=== PATIENT | female | born 1980 | race African-American/Black ===

== ENCOUNTER 2024-06-11 09:24 | Emergency (ER) | payer MEDICAID, OTHER ==
[~2024-06-11] VITALS: Ht 160 cm; Wt 63.6 kg
[~2024-06-11 09:24] MED LIST: INSNPH SQ; INSREG SQ
[2024-06-11 09:26] VITALS: TEMP 98.4
[2024-06-11] MEDS: LIDOCAINE 5% TRANSDERMAL PATCH TD ONE (10:29)
[2024-06-11] MEDS: GABAPENTIN 300 MG CAPSULE PO ONE (10:29)
[2024-06-11] MEDS: ACETAMINOPHEN 500 MG TABLET PO ONE (10:29)
[2024-06-11] MEDS ORDERED: GABA-1181 PO (11:21)
[2024-06-11 11:27] VITALS: BP 183/1; PULSE 82; RESP 19; O2SAT 97
== END 2024-06-11 12:52 | disposition home or self-care (01) ==
LOC: EMS 09:26
DX: G54.0 Brachial plexus disorders (principal); E11.9 Type 2 diabetes mellitus without complications; I10 Essential (primary) hypertension; G89.29 Other chronic pain; Z98.51 Tubal ligation status; Z79.899 Other long term (current) drug therapy; Z71.6 Tobacco abuse counseling; Z79.4 Long term (current) use of insulin; Z88.5 Allergy status to narcotic agent
CPT/HCPCS: 71045; 99284

== ENCOUNTER 2024-08-11 08:12 | Inpatient (IN) | payer SELFPAY ==
[~2024-08-11] VITALS: Ht 165.1 cm; Wt 72.7 kg
[~2024-08-11 08:12] MED LIST changes: +GABA-1181 PO
[2024-08-11 09:02] LABS: BASOPHILS % (AUTO) 0.5 % (0.0-2.0); EOSINOPHILS % (AUTO) 0.7 % (1.0-6.0); HEMOGLOBIN 13.3 g/dL (12.0-16.0); LYMPHOCYTES % (AUTO) 11.7 % (22.0-44.0); MEAN CORPUSCULAR HEMOGLOBIN 30.8 pg (26.0-34.0); MEAN CORPUSCULAR HGB CONC 33.3 G/dL (31.0-37.0); MEAN CORPUSCULAR VOLUME 92 fL (80-100); MONOCYTES # (AUTO) 0.1 K/uL (0.1-1.0); MONOCYTES % (AUTO) 1.7 % (2.0-9.0); NEUTROPHILS # (AUTO) 7.1 K/uL (1.8-7.7); PLATELET COUNT (AUTO) 361 K/uL (150-450); RED BLOOD CELL COUNT(AUTO) 4.33 MIL/uL (4.00-5.20); RED CELL DISTRIBUTION WIDTH 15.3 % (11.5-14.5); WHITE BLOOD COUNT (AUTO) 8.3 K/uL (4.5-11.0)
[2024-08-11 09:05] LABS: NEUTROPHILS % (AUTO) 85.4 % (40.0-70.0)
[2024-08-11 09:08] LABS: APPEARANCE,URINE CLEAR (CLEAR); BILIRUBIN,URINE NEGATIVE (NEGATIVE); COLOR,URINE COLORLESS (YELLOW); GLUCOSE, URINE (UA) >=1000 mg/dL (NEGATIVE); LEUKOCYTE ESTERASE ,URINE NEGATIVE (NEGATIVE); NITRATE,URINE NEGATIVE (NEGATIVE); OCCULT BLOOD,URINE NEGATIVE (NEGATIVE); PROTEIN,URINE 100-200,SEE CONFIRM mg/dL (NEGATIVE); SPECIFIC GRAVITIY, URINE 1.014 (1.003-1.030); UROBILINOGEN,URINE <=1.0 mg/dL (<=1.0)
[2024-08-11 09:11] LABS: ALBUMIN 3.2 g/dL (3.4-5.0); BILIRUBIN,DIRECT 0.2 mg/dL (0.00-0.20); BILIRUBIN,TOTAL 0.5 mg/dL (0.1-1.0); TOTAL PROTEIN, SERUM 8.3 g/dL (6.4-8.2)
[2024-08-11 09:13] LABS: AMPHET/METH SCREEN,URINE NEGATIVE (NEGATIVE); BARBITURATE SCREEN, URINE NEGATIVE (NEGATIVE); BENZODIAZEPINES SCREEN,URINE NEGATIVE (NEGATIVE); CANNABINOID SCREEN,URINE POSITIVE (NEGATIVE); COCAINE SCREEN,URINE NEGATIVE (NEGATIVE); METHADONE SCREEN, URINE NEGATIVE (NEGATIVE); OPIATE SCREEN,URINE NEGATIVE (NEGATIVE); PHENCYCLIDINE SCREEN,URINE NEGATIVE (NEGATIVE)
[2024-08-11 09:15] LABS: ALCOHOL, URINE DRUG SCREEN NEGATIVE (NEGATIVE); SULFOSALICYLIC ACID,URINE 2+ (Negative)
[2024-08-11 09:16] LABS: LACTIC ACID 1.8 mmol/L (0.4-2.0)
[2024-08-11 09:16] LABS: BACTERIA,URINE None Seen /HPF (None Seen); RBC,URINE 0-2 /HPF (0-2); WBC,URINE None Seen /HPF (0-5)
[2024-08-11 09:20] LABS: ANION GAP 11 mmol/L (8-16); CARBON DIOXIDE 27 mmol/L (22-29); CHLORIDE 100 mmol/L (98-107); CREATININE 0.94 mg/dL (0.60-1.30); GLOMERULAR FILTR. RATE CALC > 60 mL/min (>60); LIPASE 35 U/L (16-77); POTASSIUM 3.9 mmol/L (3.5-5.1); SODIUM SERUM 138 mmol/L (136-145); UREA NITROGEN, BLOOD 12 mg/dL (7-18)
[2024-08-11 09:22] LABS: GLUCOSE,RANDOM 416 mg/dL (70-110)
[2024-08-11] MEDS: HYDROmorphone HCL 2 MG/ML SYRINGE IVP ONE (09:29)
[2024-08-11] MEDS: SODIUM CHLORIDE 0.9% 2,000 ML IV ONE (09:29)
[2024-08-11] MEDS: INSULIN REGULAR, HUMAN 100 UNITS/ML IVP ONE (09:30)
[2024-08-11] MEDS: ONDANSETRON HCL 4 MG/2 ML VIAL IVP ONE (09:31)
[2024-08-11 09:40] LABS: ALCOHOL, BLOOD (SERUM) < 3 mg/dL (0-10)
[2024-08-11 11:30] LABS: GLUCOMETER DEV NAME(LOC) ER.7; GLUCOSE,POINT OF CARE 176 MG/DL (70-110)
[2024-08-11] MEDS: MECLIZINE HCL 25 MG TABLET PO ONE (12:19)
[2024-08-11] MEDS: FentaNYL CITRATE PF 100 MCG/2 ML VIAL IVP ONE (13:37)
[2024-08-11 15:04] VITALS: BP 162/76; PULSE 91; RESP 19; TEMP 97.7; O2SAT 97
[2024-08-11] MEDS ORDERED: DEXTROSE 50%-WATER 25 GM/50 ML SYRINGE IVP PRN ×3 (15:15→18:15)
[2024-08-11] MEDS ORDERED: ALBUTEROL SULFATE 2.5 MG/0.5 ML NEB SOLUTION NEB PRN (15:15)
[2024-08-11] MEDS ORDERED: ZOLPIDEM TARTRATE 5 MG TABLET PO PRN (15:15)
[2024-08-11] MEDS ORDERED: ACETAMINOPHEN 325 MG TABLET PO PRN (15:15)
[2024-08-11] MEDS ORDERED: MAGNESIUM HYDROXIDE SUSPENSION 30 ML UDCUP PO PRN (15:15)
[2024-08-11] MEDS ORDERED: IPRATROPIUM BROMIDE 0.5 MG/2.5 ML NEB SOLUTION NEB PRN (15:15)
[2024-08-11] MEDS: MORPHINE SULFATE 2 MG/ML SYRINGE IVP PRN (15:34)
[2024-08-11] MEDS: GABAPENTIN 300 MG CAPSULE PO SCH (16:00)
[2024-08-11 16:45] VITALS: BP 165/86; PULSE 96; RESP 16; TEMP 97.6; O2SAT 98
[2024-08-11] MEDS: HEPARIN SODIUM,PORCINE 5,000 UNITS/ML VIAL SQ SCH (17:09)
[2024-08-11] MEDS: ONDANSETRON HCL 4 MG/2 ML VIAL IVP PRN (17:10)
[2024-08-11] MEDS: BISACODYL 10 MG RECTAL RECTAL SUPPOSITORY PR PRN (17:43)
[2024-08-11] MEDS ORDERED: INSULIN LISPRO 100 UNITS/ML SQ PRN (17:45)
[2024-08-11] MEDS: INSULIN LISPRO 100 UNITS/ML SQ PRN (18:23)
[2024-08-11] MEDS: INSULIN GLARGINE,HUM.REC.ANLOG 100 UNITS/ML SQ SCH (18:52)
[2024-08-11 19:51] LABS: GLUCOMETER DEV NAME(LOC) 5S.2D; GLUCOSE,POINT OF CARE 370 MG/DL (70-110)
[2024-08-11 19:51] LABS: GLUCOMETER DEV NAME(LOC) 5S.2D; GLUCOSE,POINT OF CARE 380 MG/DL (70-110)
[2024-08-11 20:49] VITALS: BP 165/89; PULSE 101; RESP 18; TEMP 97.9; O2SAT 99
[2024-08-11] MEDS ORDERED: INSULIN GLARGINE,HUM.REC.ANLOG 100 UNITS/ML SQ SCH ×2 (21:00)
[2024-08-11] MEDS ORDERED: INSULIN REGULAR, HUMAN 100 UNITS/ML SQ SCH (21:00)
[2024-08-11] MEDS ORDERED: INSULIN NPH, HUMAN ISOPHANE 100 UNITS/ML SQ SCH (21:00)
[2024-08-11] MEDS ORDERED: LISI-662 PO (21:11)
[2024-08-11] MEDS ORDERED: AMLO10TA55 PO (21:11)
[2024-08-11] MEDS: RINGERS SOLUTION,LACTATED 1,000 ML IV SCH (21:43)
[2024-08-11] MEDS: MethylPREDNISolone SOD SUCC 1,000 MG in SODIUM CHLORIDE 0.9% 50 ML IV SCH (21:43)
[2024-08-11 22:02] VITALS: BP 158/80; PULSE 97; RESP 17; TEMP 97.9; O2SAT 99
[2024-08-11] MEDS: HYDROmorphone HCL 2 MG/ML SYRINGE IVP PRN (22:13)
[2024-08-11] MEDS: FAMOTIDINE 20 MG/2 ML VIAL IVP SCH (22:13)
[2024-08-11 22:56] LABS: GLUCOMETER DEV NAME(LOC) 5S.2D; GLUCOSE,POINT OF CARE 180 MG/DL (70-110)
[2024-08-11 23:29] VITALS: BP 143/72; PULSE 88; RESP 18; TEMP 98.2; O2SAT 96
[2024-08-12] VITALS (7 sets, daily range): BP systolic 143–189; BP diastolic 70–88; PULSE 90–101; RESP 17–19; TEMP 98.2–98.5; O2SAT 97–100
[2024-08-12] MEDS ORDERED: DEXTROSE 50%-WATER 25 GM/50 ML SYRINGE IVP PRN ×2 (06:15→18:15)
[2024-08-12] MEDS: INSULIN LISPRO 100 UNITS/ML SQ PRN (06:26)
[2024-08-12] MEDS: SODIUM CHLORIDE 0.9% 1,000 ML IV SCH (06:26)
[2024-08-12 07:21] LABS: BASOPHILS % (AUTO) 0.1 % (0.0-2.0); EOSINOPHILS % (AUTO) 0 % (1.0-6.0); HEMATOCRIT 39.7 % (36-46); LYMPHOCYTES # (AUTO) 0.3 K/uL (1.0-4.8); LYMPHOCYTES % (AUTO) 2.2 % (22.0-44.0); MEAN CORPUSCULAR HEMOGLOBIN 30.8 pg (26.0-34.0); MEAN CORPUSCULAR HGB CONC 32.8 G/dL (31.0-37.0); MEAN CORPUSCULAR VOLUME 94 fL (80-100); MONOCYTES % (AUTO) 0.2 % (2.0-9.0); NEUTROPHILS # (AUTO) 13.8 K/uL (1.8-7.7); PLATELET COUNT (AUTO) 347 K/uL (150-450); RED BLOOD CELL COUNT(AUTO) 4.22 MIL/uL (4.00-5.20); RED CELL DISTRIBUTION WIDTH 15.7 % (11.5-14.5); WHITE BLOOD COUNT (AUTO) 14.2 K/uL (4.5-11.0)
[2024-08-12 07:38] LABS: NEUTROPHILS % (AUTO) 97.5 % (40.0-70.0)
[2024-08-12 07:45] LABS: ANION GAP 22 mmol/L (8-16); CALCIUM, TOTAL 9.1 mg/dL (8.8-10.5); CARBON DIOXIDE 17 mmol/L (22-29); CHLORIDE 97 mmol/L (98-107); CREATININE 1.16 mg/dL (0.60-1.30); GLOMERULAR FILTR. RATE CALC > 60 mL/min (>60); POTASSIUM 4.5 mmol/L (3.5-5.1); SODIUM SERUM 136 mmol/L (136-145); UREA NITROGEN, BLOOD 22 mg/dL (7-18)
[2024-08-12 07:49] LABS: GLUCOSE,RANDOM 428 mg/dL (70-110)
[2024-08-12 08:33] LABS: ALANINE AMINOTRANSFERASE 24 U/L (12-78); ALBUMIN 3.1 g/dL (3.4-5.0); ALKALINE PHOSPHATASE 117 U/L (46-116); ASPARTATE AMINOTRANSFERASE 24 U/L (15-37); BILIRUBIN,TOTAL 0.7 mg/dL (0.1-1.0)
[2024-08-12 08:36] LABS: GLUCOMETER DEV NAME(LOC) 5N.2C; GLUCOSE,POINT OF CARE 181 MG/DL (70-110)
[2024-08-12 08:36] LABS: GLUCOMETER DEV NAME(LOC) 5N.2C; GLUCOSE,POINT OF CARE 407 MG/DL (70-110)
[2024-08-12] MEDS: PANTOPRAZOLE SODIUM 40 MG DR TABLET PO SCH (09:00)
[2024-08-12 09:07] LABS: PROTHROMBIN TIME 10.8 SEC (9.4-11.6)
[2024-08-12] MEDS ORDERED: GADOTERATE MEGLUMINE 10 MMOL/20 ML VIAL IVP ONE (09:20)
[2024-08-12] MEDS ORDERED: LIDOCAINE/PF 1% 30 ML VIAL ONE (10:28)
[2024-08-12] MEDS ORDERED: ONDANSETRON HCL 4 MG/2 ML VIAL ONE (10:28)
[2024-08-12] MEDS ORDERED: FentaNYL CITRATE PF 100 MCG/2 ML VIAL ONE (10:28)
[2024-08-12] MEDS ORDERED: MIDAZOLAM HCL 2 MG/2 ML VIAL ONE (10:28)
[2024-08-12] MEDS ORDERED: SODIUM BICARBONATE 50 MEQ/50 ML VIAL ONE (10:36)
[2024-08-12] MEDS: LIDOCAINE 1% 30 ML/SOD BICARB 8.4% 4 ML SQ ONE (10:53)
[2024-08-12 12:10] LABS: GLUCOMETER DEV NAME(LOC) 5N.1D; GLUCOSE,POINT OF CARE 247 MG/DL (70-110)
[2024-08-12 13:36] LABS: GLUCOSE, CSF 217 mg/dL (50-80)
[2024-08-12] MEDS: AmLODIPine BESYLATE 10 MG TABLET PO SCH (14:39)
[2024-08-12] MEDS: LISINOPRIL 20 MG TABLET PO SCH (14:39)
[2024-08-12 14:52] LABS: CSF TOTAL VOLUME 7.8 mL; CSF TUBE NUMBER 1
[2024-08-12 14:53] LABS: APPEARANCE,CSF CLEAR (CLEAR); COLOR,CSF COLORLESS (COLORLESS)
[2024-08-12 14:55] LABS: APPEARANCE2,CSF CLEAR (CLEAR); COLOR2,CSF COLORLESS (COLORLESS); CSF 2ND TUBE NUMBER 4
[2024-08-12 15:06] LABS: NEUTROPHILS2,CSF 0 %
[2024-08-12 15:07] LABS: MONOCYTES1,CSF 5 %; NEUTROPHILS1,CSF 42 %
[2024-08-12 15:09] LABS: LYMPHOCYTES2,CSF 44 %
[2024-08-12 15:11] LABS: LYMPHOCYTES1,CSF 53 %; MONOCYTES2,CSF 56 %
[2024-08-12 18:36] LABS: GLUCOMETER DEV NAME(LOC) 5S.2D; GLUCOSE,POINT OF CARE 128 MG/DL (70-110)
[2024-08-12 18:36] LABS: GLUCOMETER DEV NAME(LOC) 5S.2D; GLUCOSE,POINT OF CARE 115 MG/DL (70-110)
[2024-08-12] MEDS: INSULIN REGULAR, HUMAN 100 UNITS/ML SQ SCH (19:45)
[2024-08-12 20:24] LABS: ANION GAP 11 mmol/L (8-16); CALCIUM, TOTAL 8.6 mg/dL (8.8-10.5); CARBON DIOXIDE 24 mmol/L (22-29); CHLORIDE 103 mmol/L (98-107); CREATININE 1.09 mg/dL (0.60-1.30); GLOMERULAR FILTR. RATE CALC > 60 mL/min (>60); GLUCOSE,RANDOM 157 mg/dL (70-110); POTASSIUM 3.6 mmol/L (3.5-5.1); SODIUM SERUM 138 mmol/L (136-145); UREA NITROGEN, BLOOD 24 mg/dL (7-18)
[2024-08-12 20:29] LABS: ALANINE AMINOTRANSFERASE 29 U/L (12-78); ALKALINE PHOSPHATASE 112 U/L (46-116); ASPARTATE AMINOTRANSFERASE 56 U/L (15-37); BILIRUBIN,TOTAL 0.4 mg/dL (0.1-1.0); TOTAL PROTEIN, SERUM 7.9 g/dL (6.4-8.2)
[2024-08-12] MEDS: INSULIN NPH, HUMAN ISOPHANE 100 UNITS/ML SQ SCH (20:49)
[2024-08-13] VITALS: BP 138/64; PULSE 86; RESP 18; TEMP 98.1; O2SAT 98
[2024-08-13 00:10] LABS: GLUCOMETER DEV NAME(LOC) 5N.1D; GLUCOSE,POINT OF CARE 136 MG/DL (70-110)
[2024-08-13 02:41] LABS: GLUCOMETER DEV NAME(LOC) 5S.2D; GLUCOSE,POINT OF CARE 155 MG/DL (70-110)
[2024-08-13 04:00] VITALS: BP 137/55; PULSE 91; RESP 19; TEMP 98.2; O2SAT 99
[2024-08-13] MEDS: HYDROCODONE/ACETAMINOPHEN 5-325 MG TABLET PO PRN (04:28)
[2024-08-13 04:50] LABS: GLUCOMETER DEV NAME(LOC) 5N.1D; GLUCOSE,POINT OF CARE 244 MG/DL (70-110)
[2024-08-13] MEDS ORDERED: INSULIN NPH, HUMAN ISOPHANE 100 UNITS/ML SQ SCH (06:30)
[2024-08-13] MEDS ORDERED: INSULIN REGULAR, HUMAN 100 UNITS/ML SQ SCH (06:30)
[2024-08-13] MEDS: INSULIN REGULAR, HUMAN 100 UNITS/ML SQ PRN (06:31)
[2024-08-13 06:56] LABS: GLUCOMETER DEV NAME(LOC) 5S.2D; GLUCOSE,POINT OF CARE 330 MG/DL (70-110)
[2024-08-13 07:23] VITALS: BP 127/56; PULSE 89; RESP 18; TEMP 98.7; O2SAT 98
[2024-08-13 11:33] VITALS: BP 139/62; PULSE 85; RESP 17; TEMP 98.1; O2SAT 99
[2024-08-13 12:35] LABS: GLUCOMETER DEV NAME(LOC) 5N.1D; GLUCOSE,POINT OF CARE 140 MG/DL (70-110)
[2024-08-13 16:33] VITALS: BP 155/90; PULSE 110; RESP 19; TEMP 97.9; O2SAT 97
[2024-08-13 16:58] VITALS: PULSE 94
[2024-08-13 19:55] LABS: GLUCOMETER DEV NAME(LOC) 5N.1D; GLUCOSE,POINT OF CARE 207 MG/DL (70-110)
[2024-08-16 10:06] LABS: CSF PROTEIN,TOTAL (RL) 31.7 mg/dL (0.0-44.0)
[2024-08-17 16:07] LABS: ANA,IFA (TITER & PATTERN) Negative
[2024-08-19 12:07] LABS: CSF IMMUNOGLOBULIN G, QNT 4.3 mg/dL (0.0-6.7)
== END 2024-08-13 19:25 | disposition left against medical advice (07) | DRG 639 ==
LOC: EMS 08:13 → EDH 11:29 → 6S 14:38 → 5S 16:39
PROVIDERS: ADMIT Hospitalist; ATTEND Hospitalist
PROC: 009U3ZX Drainage of Spinal Canal, Percutaneous Approach, Diagnostic (ICD-10-PCS; principal; 2024-08-12)
DX: E10.10 Type 1 diabetes mellitus with ketoacidosis without coma (principal); I10 Essential (primary) hypertension; H53.2 Diplopia; R23.1 Pallor; Z53.21 Procedure and treatment not carried out due to patient leaving prior to being seen by health care provider; H50.111 Monocular exotropia, right eye; M48.02 Spinal stenosis, cervical region; Z88.5 Allergy status to narcotic agent
CPT/HCPCS: 36245; 70450; 70551; 70552; 72156; 74176; 76000; 77003; 80048; 80053; 80076; 80307; 81001; 81002; 82009; 82784; 82945; 82962; 83036; 83605; 83690; 83735; 83916; 84703; 85025; 85610; 86038; 86431; 87075; 87205; 89051; 96361; 96374; 96375; 97166; 97535; 99285; G0480; J1171; J1644; J1815; J2250; J2270; J2405; J2919; J3010; J3490; J7030; J7050; J7120; 36415-L1; 36415-TC; 87070